=== PATIENT | female | born 1960 | race Caucasian/White ===

== ENCOUNTER 2021-06-08 14:43 | Emergency (ER) | payer SELFPAY ==
[~2021-06-08] VITALS: Ht 160 cm; Wt 79.8 kg
[2021-06-08 14:45] VITALS: BP 115/52
--- NOTE | 2021-06-08 14:45 | NUR ---
PT W/C ASSISTED TO BED 9.
--- NOTE | 2021-06-08 15:17 | NUR ---
DR. SHAFFER AT PT BEDSIDE FOR FURTHER EVALUATION.
[2021-06-08] MEDS ORDERED: NACL 0.9% 1,000 ML IV ONE (15:25)
[2021-06-08] MEDS ORDERED: KETOROLAC 30 MG/ML VIAL IVP ONE (15:25)
--- NOTE | 2021-06-08 15:30 | NUR ---
60 Y/O FEMAL C/O NAUSEA, LOWER ABD PAIN 10/10 DESCRIBES PRESSURE AND SHARP RADIATES TO LOWER BACK PAIN X1DAY. ABD IS SOFT, ROUND, BOWEL SOUNDS ACTIVE X4, LAST BM 06/08/21. PMH: KIDNEY STONE, DIVERTICULOSIS ALLERGIES: MORPHINE, LATAX
--- NOTE | 2021-06-08 15:46 | NUR ---
IV ESTABLISHED TO R AC 20G, GOOD BLOOD RETURN. LABS COLLECTED WALKED TO LAB AT THIS TIME.
--- NOTE | 2021-06-08 15:55 | NUR ---
OBTAINED CT CONSENT, PLACED IN PT CHART.
--- NOTE | 2021-06-08 16:41 | NUR ---
PT SLEEPING, VISIBLE EQUAL RISE AND FALL OF CHEST, VSS, WILL CONTINUE TO MONITOR.
[2021-06-08 17:06] LABS: BASOPHILS % (AUTO) 0.3 % (0.0-2.0); EOSINOPHILS # (AUTO) 0.1 K/uL (0-0.4); EOSINOPHILS % (AUTO) 0.9 % (0.0-4.0); HEMATOCRIT 42.5 % (36-48); HEMOGLOBIN 14.5 g/dL (12.0-16.0); LYMPHOCYTES # (AUTO) 1.5 K/uL (2.5-16.5); LYMPHOCYTES % (AUTO) 14.2 % (20.5-51.1); MEAN CORPUSCULAR HEMOGLOBIN 31 pg (27-31); MEAN CORPUSCULAR HGB CONC 34 g/dL (33-37); MEAN CORPUSCULAR VOLUME 91.5 fL (80-94); MONOCYTES # (AUTO) 0.7 K/uL (0.8-1.0); NEUTROPHILS # (AUTO) 8.2 K/uL (1.8-7.7); NEUTROPHILS % (AUTO) 77.6 % (42.2-75.2); PLATELET COUNT (AUTO) 270 K/uL (140-450); RED BLOOD CELL COUNT(AUTO) 4.64 MIL/uL (4.20-5.40); RED CELL DISTRIBUTION WIDTH 12.5 % (11.6-13.7); WHITE BLOOD COUNT (AUTO) 10.5 K/uL (4.8-10.8)
[2021-06-08 17:14] LABS: APPEARANCE,URINE CLEAR (CLEAR); BILIRUBIN,URINE NEGATIVE (NEGATIVE); BLOOD, URINE NEGATIVE (NEGATIVE); COLOR,URINE YELLOW (YELLOW); LEUKOCYTE ESTERASE ,URINE NEGATIVE (NEGATIVE); NITRITE, URINE NEGATIVE (NEGATIVE); PH,URINE 7.5 (5.0-9.0); UGLUCOSE NEGATIVE (NEGATIVE)
[2021-06-08 17:34] LABS: ALBUMIN 3.9 g/dL (3.4-5.0); ANION GAP 11.9 (8-16); CARBON DIOXIDE 30.4 mmol/L (21-32); CREATININE 0.4 mg/dL (0.6-1.3); POTASSIUM 5.3 mmol/L (3.5-5.1)
--- NOTE | 2021-06-08 17:46 | NUR ---
PT TAKEN TO CT VIA W/C.
--- NOTE | 2021-06-08 17:55 | NUR ---
PT TAKEN TO ER BED 9 VIA W/C.
--- NOTE | 2021-06-08 19:04 | NUR ---
GAVE REPORT TO JOSHUA SOARES. TRANSFER OF CARE AT THIS TIME.
--- NOTE | 2021-06-08 19:18 | NUR ---
REPORT RECEIVED FROM JOSHUA ZUÑIGA, CONTINUITY OF PT CARE AT THIS TIME.
--- NOTE | 2021-06-08 20:01 | NUR ---
PT LAYING IN BED IN L LATERAL POSITION W BED LOCKED IN LOWEST POSITION, X1 SIDERAIL UP. PT REPORTS FEELING BETTER, FEELS LIKE PAIN IS STARTING TO COME BACK BUT STATES ITS NOT TO BAD, PT REPORTS NAUSEA HAS RESOLVED, DENIES OTHER SYMPTOMS. VSS. BREATHING EVEN AND UNLABORED. WILL CONTINUE TO MONITOR.
[2021-06-08] MEDS ORDERED: HYDROcodone/APAP 5/325 MG 1 TAB TAB PO ONE (20:45)
[2021-06-08] MEDS ORDERED: METR-520 PO (20:46)
[2021-06-08] MEDS ORDERED: CIPR500T4 PO (20:46)
[2021-06-08 21:00] VITALS: BP 117/74
--- NOTE | 2021-06-08 21:00 | NUR ---
Patient discharged with v/s stable. Written and verbal after care instructions given and explained. Patient alert, oriented and verbalized understanding of instructions. Ambulatory with steady gait. All questions addressed prior to discharge. ID band removed. Patient advised to follow up with PMD. Rx of CIPRO, FLAGYL given. Patient educated on indication of medication including possible reaction and side effects. Opportunity to ask questions provided and answered.
== END 2021-06-08 21:00 | disposition home or self-care (01) ==
LOC: MED 14:43
DX: K57.92 Diverticulitis of intestine, part unspecified, without perforation or abscess without bleeding (principal)
CPT/HCPCS: 36415; 74177; 80053; 81003; 85025; 96361; 96374; 99285; J1885; J7030; Q9967